=== PATIENT | male | born 1995 | race Caucasian/White ===

== ENCOUNTER 2019-02-12 21:58 | Inpatient (IN) | payer SELFPAY ==
[2019-02-12] MEDS ORDERED: Fentanyl 100 MCG/2 ML VIAL ONE (22:03)
[2019-02-12] MEDS ORDERED: Ketorolac Tromethamine 30 MG/ML VIAL ONE (22:11)
[2019-02-12 22:27] LABS: #Basophils 0.1 thou/uL (0.0-0.2); #Eosinphils 0.2 thou/uL (0.0-0.7); #Lymphocytes 4.6 thou/uL (1.20-3.40); #Monocytes 1.3 thou/uL (0.11-0.59); #Neutrophils 5.3 thou/uL (1.40-6.50); %Basophils 0.7 % (0.0-1.0); %Eosinophils 1.6 % (0.0-10.0); %Lymphocytes 40.1 % (21.0-51.0); %Monocytes 11.5 % (0.0-10.0); %Neutrophils 46.1 % (42.0-75.0); Mean Corpuscular HGB CONC 34.8 g/dL (32.0-36.0); Mean Corpuscular Hemoglobin 33.3 pg (27.0-31.0); Mean Corpuscular Volume 95.9 fL (78.0-98.0); Mean Platelet Volume 7.9 fL (7.4-10.4); Platelet Count 232 thou/uL (130-400); RBC Distribution Width 11.5 % (11.5-14.5); White Blood Cell (WBC) Count 11.4 thou/uL (4.8-10.8)
--- NOTE | 2019-02-12 22:40 | RAD ---
Radiograph left leg tibia-fibula 2 views: DATE: 02/12/2019 Time: 10:04 PM HISTORY: 23-year-old male status post acute traumatic injury and pain to left leg. FINDINGS: Oblique fractures near junctions between middle and distal thirds of tibial and fibular diaphyses, wi th lateral angulations of distal major fragments (medial angulation of fracture apices). Both fractures are mildly comminuted. Approximately one third bone width anterior displacement of distal t ibial main fragment. Approximately 75% lateral displacement and 10-20% anterior displacement of major distal fibular fragment. IMPRESSION: Acute, traumatic, displaced, comminuted fractures of the distal tibial and distal fibular shafts.
[2019-02-12 22:45] LABS: ALT (SGPT) 21 U/L (8-55); AST (SGOT) 27 U/L (5-34); Albumin 4.7 g/dL (3.5-5.0); Alkaline Phosphatase 105 U/L (40-150); Anion Gap 16 mmol/L (10-20); BUN (Urea Nitrogen) 11 mg/dL (8.9-20.6); Bilirubin, Total 0.5 mg/dL (0.2-1.2); Calc. Creatinine Clearance 0 mL/min (70-130); Calcium 9.3 mg/dL (7.8-10.44); Carbon Dioxide 26 mmol/L (22-29); Chloride 98 mmol/L (98-107); Estimated GFR-MDRD Greater than 90; Globulin 2.8 g/dL (2.4-3.5); Glucose 96 mg/dL (70-105); Protein, Total 7.5 g/dL (6.0-8.3); Sodium 137 mmol/L (136-145)
[2019-02-12 22:48] LABS: Potassium 2.9 mmol/L (3.5-5.1)
[2019-02-12] MEDS ORDERED: HYDROmorphone 0.5 MG/0.5 ML SYRINGE ONE (22:59)
--- NOTE | 2019-02-12 23:03 | RAD ---
RADIOGRAPH CHEST 1 VIEW: DATE: 02/12/2019 HISTORY: 23-year-old male status post trauma. Preoperative clearance. FINDINGS: The visualized lung bah are clear. The cardiomediastinal silhouette and hilar shadows are normal. The lateral costophrenic angles are sharp. The osseous structures appear normal. There is no pneumothorax. IMPRESSION: Negative.
--- NOTE | 2019-02-12 23:03 | RAD ---
Radiograph left ankle 2 views: DATE: 02/12/2019 Time: 10:43 PM HISTORY: 23-year-old male with acute, traumatic fractures of distal tibia and fibula. Status post first reduct ion attempt. COMPARISON: Right leg tibia-fibula radiograph of 02/12/2019 at 10:07 PM FINDINGS: The leg has been placed into a splint. There is no interval change in the degree of anterior displace ment of the distal tibial and fibular major fragments. There has been interval improvement in the lateral angulations of the major distal tibial and fibular fragments. There has been interval improve ment in the lateral displacement of the distal fibular major fragment, now approximately one third shaft width. IMPRESSION: Interval reduction of the acute, traumatic, oblique, mildly comminuted fractures of the distal shaft of the tibia and fibula, with interval improvement in alignment.
[2019-02-12] MEDS ORDERED: hydrALAZINE 20 MG/ML VIAL SLOW IVP PRN (23:12)
[2019-02-12] MEDS ORDERED: Ondansetron PF 4 MG/2 ML Vial IVP PRN (23:12)
[2019-02-12] MEDS ORDERED: Dextrose 5% in Water 1,000 ML IV PRN (23:12)
[2019-02-12] MEDS ORDERED: Dextrose 50% Abboject 50 ML SYRINGE SLOW IVP PRN (23:12)
[2019-02-12] MEDS ORDERED: Promethazine HCl 25 MG/ML VIAL IM PRN (23:12)
[2019-02-12] MEDS ORDERED: traMADol HCl 50 MG TAB PO PRN (23:15)
--- NOTE | 2019-02-13 00:28 | HP ---
TRAUMA SURGEON: Ki Padron MD CONSULTING PHYSICIAN: Franky Richter MD HISTORY OF PRESENT ILLNESS: The patient is a 23-year-old male, who presented to the emergency department via EMS as a level-2 trauma activation after a fall from his skateboard. The patient denied loss of consciousness. He had some deformity to his left tib-fib. Denies anticoagulation use. Reported pain at the site. There were no signs of open fracture at that time. He denies loss of sensation and motor function. REVIEW OF SYSTEMS: All additional 10-point review of systems negative except as indicated above. PAST MEDICAL HISTORY: None. PAST SURGICAL HISTORY: The patient had an I and D of the right knee for staph infection. No complications afterwards. SOCIAL HISTORY: The patient is a student and works, also chewing horses. He lives with a roommate. Reports he does chew tobacco and smokes about half a pack of cigarettes per day. Reports social alcohol use. Smokes marijuana as well about twice a week. Last use of marijuana was yesterday. MEDICATIONS: None. ALLERGIES: NO KNOWN DRUG ALLERGIES. PHYSICAL EXAMINATION: VITAL SIGNS: Temperature 98.6, pulse 96, respirations 18, oxygen saturation 100% on room air, blood pressure 115/69. PRIMARY SURVEY: Airway intact. Adequate breath sounds bilaterally. 2+ pulses in the bilateral radials, femorals, and DPs. GCS is 15. Gross motor and sensation are intact. No lacerations, bruising or external bleeding. Splint to left lower extremity. SECONDARY SURVEY: HEAD: Normocephalic and atraumatic. No gross palpable skull deformities or tenderness. EYES: Pupils 3-2, equal, round, reactive to light bilaterally. ENT: No hemotympanum. No epistaxis. No septal hematoma. Midface stable to manipulation. No blood in the oropharynx. Dentition is intact. No anterior neck injury/crepitus/tenderness. C-SPINE: No step-offs or deformities, nontender, C-collar not in place. CHEST: Nontender. No crepitus. No abrasions or ecchymosis. Equal chest movement. ABDOMEN: Soft, nontender, and nondistended. PELVIS: Stable to palpation, nontender. No abrasions or ecchymosis noted. RECTAL: Deferred. GENITOURINARY: Deferred. EXTREMITIES: No gross deformities. Splint to left lower extremity is clean, dry, and intact. No abrasions or ecchymosis noted. 2+ pulses in the bilateral radials, femorals, and DPs. BACK/SPINE: No step-offs or deformities or tenderness to palpation of the thoracic or lumbar spine. No abrasions or ecchymosis noted. NEUROLOGIC: 5/5 strength in the bilateral entry manager, plantar flexion, and dorsiflexion. Gross normal sensation x4 extremities. LABORATORY FINDINGS: White count 11.4, hemoglobin 17.0, hematocrit 48.9, platelets 232. Sodium 137, potassium 2.9, chloride 98, carbon dioxide 26, BUN 11, creatinine 0.98, glucose 96, total bilirubin 0.7, AST 27, ALT 21, alkaline phosphatase 105. DIAGNOSTIC FINDINGS: X-ray of the left ankle demonstrates interval reduction of acute traumatic oblique mildly comminuted fracture of the distal shaft of the tibia and fibula with interval improvement in alignment. Chest x-ray demonstrates negative impression. X-ray of the left tib-fib demonstrates acute traumatic displaced comminuted fracture of the distal tibia and distal fibular shaft. ASSESSMENT: 1. Status post fall from skateboard. 2. Left midshaft tib-fib fracture. 3. Hypokalemia. PLAN: The patient will be admitted to the Trauma Service and will go to the surgical floor. He will be n.p.o. after midnight with normal saline at 120 an hour in preparation for the OR tomorrow. He will also receive 40 mEq of potassium chloride for hypokalemia. Will replete labs tomorrow morning. Orthopedic Surgery will evaluate the patient tomorrow. Postoperatively, he will work with Physical and Occupational Therapy and will likely be able to be discharged home to his family with crutches. Job ID: [id number]
[2019-02-13 00:47] LABS: Bilirubin Negative (Negative); Blood, Urine Negative (Negative); Clarity Clear (Clear); Glucose, Urine (Dipstick) Normal (Negative); Leukocyte Negative Leu/uL (Negative); Nitrite Negative (Negative); Protein, Urine (Dipstick) Negative (Neg-Trace); Urobilinogen Normal mg/dL (Less than 2)
[2019-02-13] MEDS: Morphine 4 MG/ML VIAL SLOW IVP PRN ×6 (01:13→22:00)
[2019-02-13] MEDS: Acetaminophen 1,000 MG in Premix Bag 1 BAG IVPB SCH ×4 (01:14→18:12)
[2019-02-13] MEDS: traMADol HCl 50 MG TAB PO PRN ×2 (01:15→08:11)
[2019-02-13] MEDS: Sodium Chloride 0.9% 1,000 ML IV SCH ×4 (01:15→16:12)
[2019-02-13] MEDS: Potassium Chloride 20 MEQ in Premix Bag 1 BAG IVPB SCH ×2 (01:21→03:42)
[2019-02-13 01:27] VITALS: BMI 23.9
[2019-02-13] MEDS: Nicotine 14 MG PATCH TOP SCH ×2 (01:36→13:32)
[2019-02-13 05:07] LABS: #Basophils 0.1 thou/uL (0.0-0.2); #Eosinphils 0.1 thou/uL (0.0-0.7); #Lymphocytes 2.5 thou/uL (1.20-3.40); #Monocytes 1.2 thou/uL (0.11-0.59); #Neutrophils 7.1 thou/uL (1.40-6.50); %Basophils 0.5 % (0.0-1.0); %Eosinophils 0.9 % (0.0-10.0); %Lymphocytes 22.5 % (21.0-51.0); %Monocytes 10.7 % (0.0-10.0); %Neutrophils 65.4 % (42.0-75.0); Hemoglobin 15.1 g/dL (14.0-18.0); Mean Corpuscular HGB CONC 33.5 g/dL (32.0-36.0); Mean Corpuscular Hemoglobin 32.2 pg (27.0-31.0); Mean Corpuscular Volume 96.1 fL (78.0-98.0); Mean Platelet Volume 8.6 fL (7.4-10.4); Platelet Count 219 thou/uL (130-400); RBC Distribution Width 11.5 % (11.5-14.5); Red Blood Cell (RBC) Count 4.69 mill/uL (4.70-6.10); White Blood Cell (WBC) Count 10.9 thou/uL (4.8-10.8)
[2019-02-13] MEDS: Ibuprofen 800 MG TAB PO SCH ×3 (05:23→22:00)
[2019-02-13 05:27] LABS: Anion Gap 12 mmol/L (10-20); BUN (Urea Nitrogen) 10 mg/dL (8.9-20.6); Calc. Creatinine Clearance 145 mL/min (70-130); Calcium 8.7 mg/dL (7.8-10.44); Carbon Dioxide 25 mmol/L (22-29); Chloride 105 mmol/L (98-107); Estimated GFR-MDRD Greater than 90; Glucose 77 mg/dL (70-105); Phosphorus 4.2 mg/dL (2.3-4.7); Potassium 4.3 mmol/L (3.5-5.1); Sodium 138 mmol/L (136-145)
[2019-02-13] MEDS ORDERED: CEFAZOLIN 2 GM in Premix Bag 1 BAG IVPB SCH (07:30)
[2019-02-13] MEDS: Senokot S 8.6-50 MG TAB PO SCH ×2 (08:11→21:42)
[2019-02-13] MEDS: Polyethylene Glycol 3350 17 GM Packet PO SCH (08:13)
--- NOTE | 2019-02-13 08:30 | CON ---
DATE OF CONSULTATION: 02/13/2019 This is Polina Murphy PA-C dictating a report for Franky Richter MD. REQUESTING PHYSICIAN: Trauma Services. CONSULT PHYSICIAN: Franky Richter MD REASON FOR CONSULTATION: Left tibia fracture. HISTORY OF PRESENT ILLNESS: This is a 23-year-old male, who presented to the Emergency Department by way of EMS as a level 2 trauma activation after a fall from his skateboard. The patient denied loss of consciousness. He had some deformity to his left tib-fib. No signs of open fracture at the time of his evaluation in the ER. Workup involved x-rays, which showed displaced midshaft left tibia and fibula fractures. We have been consulted for this reason. The patient has been admitted to the Trauma Services. Currently at bedside patient denies injuries to other extremities. He denies any numbness or tingling. He denies any head injury. Pain is minimal at this time secondary to recent immobilization in a splint and pain medicine administered by nursing staff. PAST MEDICAL HISTORY: The patient reports that he had a staph infection on the right knee when he was approximately 14 years old and had an I and D performed at that time. No complications followed. PAST SURGICAL HISTORY: I and D right knee. 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 He lives with a roommate. He does chew tobacco while he works. He also smokes approximately half a pack of cigarettes per day. He does report smoking marijuana about twice a week. He is a social alcohol user. No history of IV drug use. ALLERGIES: NO KNOWN DRUG ALLERGIES. REVIEW OF SYSTEMS: Additional 10-point review of systems conducted and otherwise negative except for stated above. PHYSICAL EXAMINATION: VITAL SIGNS: Shows vital signs of temperature of 97.7, pulse of 80, respiratory rate of 16, O2 saturation of 98% on room air, and blood pressure of 113/68. GENERAL: The patient is awake and alert. He is in no apparent distress. He is pleasant and cooperative with exam at this time. No family members are currently present at bedside. HEENT: Head is normocephalic and atraumatic. NECK: Supple. Trachea midline. LUNGS: Breathing nonlabored. EXTREMITIES: The left lower extremity appears to be in a posterior stirrup splint. This appears well fitting. The patient is able to move his toes. Sensation intact distally. Capillary refill 3 seconds. All other extremities were evaluated. No obvious deformities are noted. RADIOGRAPHIC DATA: Reviewed including x-rays of the left tibia show a left tibial shaft fracture with a left fibular shaft fracture, both appear displaced. ASSESSMENT: Left tibia and fibula shaft fractures. PLAN: The patient has been admitted to [place] [address] surgical floor to the Trauma Service. He has been n.p.o. since midnight. We will plan to proceed with surgical intervention this afternoon including an IM nail of the left tibia. Risks, benefits, and alternatives were discussed at length with the patient. He does verbalize understanding. Postoperatively, he will return back to the [place] [address], where he will work with physical therapy. He will be nonweightbearing. Once his IV postoperative antibiotics are completed, he will likely be able to go home. Job ID: [id number] MTDD
[2019-02-13] MEDS ORDERED: Ketorolac Tromethamine 30 MG/ML VIAL IVP SCH ×2 (11:00→23:45)
--- NOTE | 2019-02-13 13:42 | PRG ---
DATE OF SERVICE: 02/13/2019 23-year-old male status post skateboard accident, who sustained a left distal tib-fib fracture. SUBJECTIVE: The patient reports his pain is 7/10 this morning. Otherwise, he appears alert and oriented. He has no concerns at this time. His surgery is scheduled for sometime this afternoon. Therefore, he is n.p.o. OBJECTIVE: VITAL SIGNS: Temperature 97.6, pulse 82, respirations 14, saturating 95% on room air, and blood pressure 123/64. GENERAL: Well-appearing young male. RESPIRATORY: No respiratory distress. CARDIAC: Appears well perfused. No cyanosis. ABDOMEN: Nondistended. EXTREMITIES: SCD on right leg and the other leg is braced/splinted LABORATORY DATA: WBC 10.9, hemoglobin 15.1, hematocrit 45.1, and platelets 219. Sodium 138, potassium 4.3, chloride 105, bicarb 25, BUN 10, creatinine 0.86, calcium 8.7, phosphorus 4.2, and magnesium 2.0. Liver enzymes on admission yesterday were normal. ASSESSMENT: 1. 23-year-old male status post skateboard fall. 2. Left midshaft distal tibial and fibular fractures status post closed reduction in the emergency room yesterday, plan for operating room today. 3. Current smoker. Current marijuana user. PLAN: The patient will remain n.p.o. until his surgery today. After that, he may have a diet. We will continue pain management and will begin VTE prophylaxis after surgery. He will work with PT and OT and will likely be discharged once his pain is controlled. This patient was seen, discussed and examined with Dr. Acosta, who agrees with assessment and plan. Katt Germain MD PGY1 Job ID: [id number] [facility]
[2019-02-13] MEDS ORDERED: Fentanyl 100 MCG/2 ML VIAL ONE ×5 (17:06→21:06)
[2019-02-13] MEDS ORDERED: Meperidine HCl/PF 25 MG/ML VIAL ONE (18:54)
--- NOTE | 2019-02-13 19:59 | RAD ---
Radiograph left leg tibia-fibula 2 views: DATE: 02/13/2019 HISTORY: 23-year-old male with acute traumatic fractures of the distal tibia and fibula shafts. COMPARISON: 02/12/2019 FINDINGS: A total of 6 small [id number] fluoroscopic spot images obtained with C-arm in the OR. There has be en interval further reduction of the fracture at the junction between the middle and distal thirds of the tibial diaphysis. An intramedullary nail has been placed through the length of the tibia, with 2 distal stabilization screws and one proximal stabilization screw. Alignment is nearly anatomical. The distal fibular diaphyseal fracture does not contain hardware. IMPRESSION: Interval reduction and fixation of the acute, traumatic, mildly comminuted fracture at distal tibial shaft with intramedullary nail.
[2019-02-13] MEDS ORDERED: Ketorolac Tromethamine 30 MG/ML VIAL IVP PRN (20:06)
[2019-02-13] MEDS ORDERED: Acetaminophen/Codeine 30-300mg Tablet PO PRN ×3 (20:08→23:43)
[2019-02-13] MEDS ORDERED: Promethazine HCl 25 MG/ML VIAL IM PRN (20:14)
[2019-02-13] MEDS ORDERED: Promethazine HCl 25 MG/ML VIAL SLOW IVP PRN (20:14)
[2019-02-13] MEDS ORDERED: HYDROmorphone 2 MG/ML VIAL SLOW IVP PRN (20:14)
[2019-02-13] MEDS ORDERED: Meperidine HCl/PF 25 MG/ML VIAL SLOW IVP PRN (20:14)
[2019-02-13] MEDS ORDERED: traMADol HCl 50 MG TAB PO PRN (22:29)
[2019-02-13] MEDS: Acetaminophen/Codeine 30-300mg Tablet PO PRN (23:57)
[2019-02-13] MEDS: Acetaminophen 325 MG TAB PO SCH (23:58)
[2019-02-13] MEDS ORDERED: traMADol HCl 50 MG TAB PO SCH (23:59)
[2019-02-13] MEDS ORDERED: Acetaminophen 500 MG TAB PO SCH (23:59)
--- NOTE | 2019-02-14 00:54 | PRG ---
DATE OF SERVICE: 02/13/2019 SUBJECTIVE: The patient was seen this evening during rounds. He was sitting up in bed with no signs of acute distress. He is postoperative day #0, status post fixation of a left midshaft tib-fib fracture. At the time of my evaluation, the patient was complaining of 7/10 pain to his left knee. He had been previously given p.r.n. pain medications and additional p.r.n. tramadol was given at that time. OBJECTIVE: VITAL SIGNS: The patient is afebrile, hemodynamically stable, saturating 95% on room air. GENERAL: Well-appearing young male, sitting up in bed with no signs of acute distress. PULMONARY: Equal chest rise and fall. Clear breath sounds bilaterally. No signs of acute respiratory distress. CARDIAC: Regular rate and rhythm. No murmurs, gallops, or rubs. GI: Abdomen is soft, nontender, and nondistended. EXTREMITIES: 2+ pulses in all extremities. No significant swelling noted. Gross motor and sensation intact. Left knee and tib-fib with dressings in place that are clean, dry, and intact. NEUROLOGIC: GCS is 15. ASSESSMENT: 1. Status post fall from skateboard. 2. Left tib-fib fracture, status post repair. 3. Hypokalemia, resolved. 4. Acute traumatic pain. PLAN: We will continue current diet. The patient's IV fluids were discontinued. He will receive a one time 30 mg dose of IV Toradol this evening. Tramadol was discontinued and the patient was placed on p.r.n. Tylenol No. 3. Also, his scheduled Tylenol dose was decreased from 1 g q.6 to 325 q.6. We will continue p.r.n. IV morphine for breakthrough pain at this time. The patient is to work with Physical and Occupational Therapy tomorrow and will likely be able to be discharged with crutches if his pain is well controlled. He has voided since he has returned from the OR. Job ID: [id number]
[2019-02-14] MEDS: Morphine 4 MG/ML VIAL SLOW IVP PRN ×2 (01:43→08:23)
[2019-02-14] MEDS: CEFAZOLIN 2 GM in Premix Bag 1 BAG IVPB SCH ×2 (03:00→10:14)
[2019-02-14 03:29] VITALS: TEMP 97.6
[2019-02-14 05:52] LABS: #Lymphocytes 0.8 thou/uL (1.20-3.40); #Neutrophils 13.1 thou/uL (1.40-6.50); %Basophils 0.2 % (0.0-1.0); %Eosinophils 0.1 % (0.0-10.0); %Lymphocytes 5.5 % (21.0-51.0); %Monocytes 6.6 % (0.0-10.0); %Neutrophils 87.6 % (42.0-75.0); Hemoglobin 15.5 g/dL (14.0-18.0); Mean Corpuscular HGB CONC 35.1 g/dL (32.0-36.0); Mean Corpuscular Hemoglobin 33.3 pg (27.0-31.0); Mean Corpuscular Volume 94.9 fL (78.0-98.0); Mean Platelet Volume 8.1 fL (7.4-10.4); Platelet Count 204 thou/uL (130-400); RBC Distribution Width 11.1 % (11.5-14.5); Red Blood Cell (RBC) Count 4.65 mill/uL (4.70-6.10); White Blood Cell (WBC) Count 14.9 thou/uL (4.8-10.8)
[2019-02-14] MEDS: Ibuprofen 800 MG TAB PO SCH (05:54)
[2019-02-14] MEDS: Acetaminophen/Codeine 30-300mg Tablet PO PRN ×2 (05:55→10:15)
[2019-02-14 06:17] LABS: Anion Gap 18 mmol/L (10-20); BUN (Urea Nitrogen) 9 mg/dL (8.9-20.6); Calc. Creatinine Clearance 136 mL/min (70-130); Calcium 9.2 mg/dL (7.8-10.44); Carbon Dioxide 18 mmol/L (22-29); Chloride 104 mmol/L (98-107); Estimated GFR-MDRD Greater than 90; Glucose 102 mg/dL (70-105); Magnesium 2.1 mg/dL (1.6-2.6); Phosphorus 4.1 mg/dL (2.3-4.7); Potassium 5.2 mmol/L (3.5-5.1); Sodium 135 mmol/L (136-145)
[2019-02-14] MEDS: Acetaminophen 325 MG TAB PO SCH ×2 (06:18→12:55)
[2019-02-14] MEDS: Polyethylene Glycol 3350 17 GM Packet PO SCH (08:24)
[2019-02-14] MEDS: Senokot S 8.6-50 MG TAB PO SCH (08:24)
[2019-02-14] MEDS ORDERED: Aspirin 325 mg Enteric Coated Tablet PO SCH (09:00)
[2019-02-14] MEDS ORDERED: Ondansetron ORAL SOLN. 4 MG/5 ML UDCUP PO PRN (12:04)
[2019-02-14] MEDS ORDERED: Ondansetron ODT 4 MG TAB PO PRN (12:07)
[2019-02-14 13:11] VITALS: BP 116/61
--- NOTE | 2019-02-14 21:34 | DIS ---
DATE OF ADMISSION: 02/12/2019 DATE OF DISCHARGE: 02/14/2019 This is Liliana Panda NP dictating a report for Armando Acosta DO. ADMITTING ATTENDING: Ki Padron MD CONSULTS: Orthopedic Surgery, Dr. Richter. PROCEDURES: On 02/12/2019, x-ray of the left ankle demonstrates interval reduction of acute traumatic oblique mildly comminuted fracture of the distal shaft of the tibia and fibula with interval improvement in alignment. Chest x-ray demonstrates no acute cardiopulmonary process. X-ray of the left tib-fib demonstrates acute traumatic displaced comminuted fracture of the distal tibia and fibula shaft fracture. On 02/13/2019, the patient was taken to the OR for repair by Dr. Richter, IM nail of the left tibia. PRIMARY DIAGNOSES: Status post fall from skateboard, left midshaft tibia and fibular fracture. Hypokalemia. DISCHARGE MEDICATIONS: 1. Tylenol No.4 q.4-6 hours as needed for pain, #40 prescribed by Orthopedic Surgery. 2. Aspirin 325 mg p.o. daily for 2 weeks. 3. Acetaminophen 325 mg q.6 hours. 4. Ibuprofen 800 mg q.8 hours as needed for pain. 5. MiraLAX, stool softener as needed. 6. Senokot stool softener as needed. HISTORY OF PRESENT ILLNESS AND HOSPITAL COURSE: This is a 23-year-old male who presented to the emergency room via EMS as a level 2 trauma activation after a fall from a skateboard. The patient had no loss of consciousness. The patient did have deformity to his left tib-fib. There are no signs of an open fracture. There was no loss of motor or sensation to that extremity. The patient was taken to the OR for repair by Dr. Richter. The patient did have some postop pain issues. The patient was able to work with Physical Therapy and able to ambulate with crutches without any difficulty. On the day of discharge, the patient was examined by Dr. Acosta. The patient's vital signs were stable on the day of discharge and his exam was unremarkable including cardiopulmonary and GI exam. The patient was deemed stable for discharge home. The patient had no complaints or concerns. DISPOSITION: Stable. DISCHARGE INSTRUCTIONS: 1. Disposition: Home. 2. Diet: Regular diet. 3. Activity: Toe-touch weightbearing, left lower extremity. 4. Followup: Follow up with Dr. Richter in 10 days. Job ID: [id number]
--- NOTE | 2019-02-16 15:16 | OP ---
DATE OF PROCEDURE: 02/13/2019 PREOPERATIVE DIAGNOSIS: Closed left tib-fib fracture. POSTOPERATIVE DIAGNOSIS: Closed left tib-fib fracture. SURGICAL PROCEDURE: Intramedullary nail stabilization, left tibia. ANESTHESIA: General. GAS SUBSTATION OPERATOR: Arash Garcia PA-C ESTIMATED BLOOD LOSS: 100 mL. TOURNIQUET TIME: Zero. IMPLANTS: Synthes 9 x 375 mm tibial EX nail with 3 cross-lock screws. COMPLICATIONS: None. DRAINS: None. SPECIMEN: None. OUTCOME: Near-anatomic alignment. INDICATIONS FOR PROCEDURE: The patient is a 23-year-old gentleman status post skateboard injury, in which he sustained a left closed tib-fib fracture. The patient has instability from this fracture and as such, is now taken to the operating room for intramedullary nail stabilization to improve mobility, provide pain relief and hopefully speed, eventual union of the fracture. Today, risks and benefits were discussed with the patient regarding surgery. Risks include, but are not limited to bleeding, infection, nerve injury, DVT, PE, malunion, nonunion, loss of limb or life. He appears to understand and does wish to proceed. DESCRIPTION OF PROCEDURE: The patient was brought to the operating room and a time-out was performed, followed by induction of general anesthesia. Next, the patient was positioned on the fracture table with the injured extremity held over a bolster with the knee approaching 80 degrees of flexion with longitudinal traction applied at the foot. The well leg was just held in extension to allow for AP and lateral C-arm imaging of the left leg. Next, a sterile prep and drape were performed of the left lower extremity. Next, a midline anterior knee incision was made overlying the patellar tendon. After skin was sharply incised, dissection was carried down bluntly to the underlying peritenon, this was incised in-line with skin incision, reflected medially and laterally. Next, a medial parapatellar tendon approach to the proximal tibia was utilized. This was followed by utilization of a Kuntscher awl to obtain a starting point for guidewire placement. A ball-tipped guidewire was then passed down the shaft of the tibia across the fracture into the distal tibial metaphysis. Once appropriately positioned, reaming was started at 8.5 mm, which achieved cortical chatter. As such, reaming was taken up to 10.5 mm and it was decided to place a 9 mm nail. A 9 x 375 mm nail was then inserted without difficulty. Once fully driven into the distal tibial metaphysis, two small stab wounds were created medially and freehand technique was used to distally cross-lock the nail. The nail was then backslapped to obtain compression across the fracture and then a single proximal cross-lock screw was applied. At the completion of this, the wounds were irrigated with bulb syringe and then the wounds closed. The 3 small stab wounds from the cross-lock screws were closed with simple hari. The midline anterior knee incision closed in layers with 0 Vicryl for the peritenon, 2-0 Vicryl subcutaneously, and then hari for the skin. At the completion of this, Xeroform gauze, Webril, and soft dressing was applied to the leg and then, the patient was transferred to recovery room in stable condition. There were no complications. The patient tolerated the procedure well. Job ID: [id number]
== END 2019-02-14 14:28 | disposition home or self-care (01) | DRG 494 ==
LOC: ERS 21:58 → SURG A 23:12
PROVIDERS: ADMIT Surgery; ATTEND Surgery
PROC: 0QSH06Z Reposition Left Tibia with Intramedullary Internal Fixation Device, Open Approach (ICD-10-PCS; principal; 2019-02-13)
DX: S82.392A Other fracture of lower end of left tibia, initial encounter for closed fracture (principal); Z98.890 Other specified postprocedural states; F17.210 Nicotine dependence, cigarettes, uncomplicated; F17.220 Nicotine dependence, chewing tobacco, uncomplicated; E87.6 Hypokalemia; S82.832A Other fracture of upper and lower end of left fibula, initial encounter for closed fracture; V00.131A Fall from skateboard, initial encounter; Y93.89 Activity, other specified
CPT/HCPCS: 36415; 71045; 76000; 80048; 80053; 81003; 83735; 84100; 85025; 93005; C1713; C1769; G0390; J0131; J0690; J1170; J1885; J2175; J2270; J2405; J3010; J3480; Q0162